=== PATIENT | female | born 1980 | race Caucasian/White ===

== ENCOUNTER 2018-05-12 12:26 | Emergency (ER) | payer OTHER ==
--- NOTE | 2018-05-12 12:41 | UC ---
Respiratory Complaint HPI - HPI Summary HPI Summary: 37 y/o female presents to the urgent care c/o cough and cold symptoms for about a week. she feels it has settled in her chest. she has been afebrile, and has a productive cough with yellow phlem. no shortness of breath. but some pressure when trying to take a deep breath - History of Current Complaint Stated Complaint: COUGH CONGESTION Time Seen by Provider: 05/12/18 12:34 Hx Obtained From: Patient Hx Last Menstrual Period: 07/07/15 - Allergies/Home Medications Allergies/Adverse Reactions: Allergies Allergy/AdvReac Type Severity Reaction Status Date / Time No Known Allergies Allergy Verified 05/12/18 12:53 PMH/Surg Hx/FS Hx/Imm Hx - Surgical History Surgical History: None - Social History Alcohol Use: Occasionally Alcohol Amount: 1-2 DRINKS/MONTH Substance Use Type: None Smoking Status (MU): Never Smoked Tobacco Physical Exam - Summary Physical Exam Summary: Vital Signs Reviewed: Yes General: well developed, well nourished female sitting in the examining table w/ o any apparent distress Eyes: Positive: Conjunctiva Clear - PERRLA, EOMI, fundi grossly normal ENT: Positive: Normal ENT inspection, Hearing grossly normal, Pharynx normal, Nasal congestion - edematous and erythematous nasal mucosa, Nasal drainage - yellowish drainage, TMs normal. Negative: Tonsillar swelling, Tonsillar exudate Neck: Positive: Supple, Nontender, No Lymphadenopathy Respiratory: no orthopnea or dyspnea. Able to speak in full sentences, no retractions or accessory muscle use, no tripod position, stridor, or head bobbing. Positive breath sounds bilaterally. B/l posterior lungs w/ scattered rhonchi RT>LF, no wheezing, no crackles or rales. Cardiovascular: Positive: RRR, No Murmur, Pulses Normal, Brisk Capillary Refill Abdomen Description: Positive: Nontender, No Organomegaly, Soft. Negative: CVA Tenderness (R), CVA Tenderness (L) Bowel Sounds: Positive: Present Musculoskeletal Exam: Normal Musculoskeletal: Positive: Strength Intact, ROM Intact, No Edema Neurological Exam: Normal Psychological Exam: Normal Skin Exam: Normal Triage Information Reviewed: Yes Respiratory Course/Dx - Differential Dx/Diagnosis Differential Diagnosis/HQI/PQRI: Asthma, Bronchitis, Laryngitis, Lower Resp Infection, Sinusitis, Other - pneumonia Provider Diagnoses: 1- Acute bronchitis. 2-Cough Discharge - Sign-Out/Discharge Documenting (check all that apply): Patient Departure - D/c home All imaging exams completed and their final reports reviewed: No Studies - Discharge Plan Condition: Stable Disposition: HOME Prescriptions: Azithromyxin ANAND (NF) [Z-Anand (Zithromax) 250 mg tabs #6] 2 tab PO .TODAY, THEN 1 DAILY #6 tab Benzonatate CAP* [Tessalon 100 MG CAP*] 100 mg PO TID #21 cap Patient Education Materials: Acute Bronchitis (ED) Referrals: Yanique Guo MD [Primary Care Provider] - 3 Days Additional Instructions: 1-Please take full course of antibiotic to avoid resistance. 2-Take Tessalon PO tabs as directed to alleviate cough. Increase fluid intake, rest and eat well. 3- Please F/u with your PCP in 3-4 days if not improvement of symptoms for further management - Billing Disposition and Condition Condition: STABLE Disposition: Home
[2018-05-12 12:53] VITALS: BP 108/69
== END 2018-05-12 13:14 | disposition home or self-care (01) ==
LOC: UCEAST 12:26
DX: J20.9 Acute bronchitis, unspecified (principal)
CPT/HCPCS: 99212; G0463

== ENCOUNTER → 2018-08-11 09:27 | Day surgery (SDC) | payer OTHER ==
[~2018-08-11 09:27] MED LIST: Buffered Lidocaine 0.9% SYRIN* 5 ML/SYR SYRINGE INTRADERM ONE; Bupivacaine 0.5% W/EPI SDV* 30 ML VIAL ONE; Dexamethasone IV* 4 MG/ML 1 ML (4 MG) ONE; Famotidine IV* 10 MG/ML 2 ML (20 mg) IV ONE; Famotidine IV* 10 MG/ML 2 ML (20 mg) ONE; KETAMINE HCL* 50 MG/ML 10 ML VIAL ONE; Ketorolac INJ* 30 MG/ML 1 ML VIAL ONE; Lactated Ringers 1000 ML Bag* 1,000 ML IV SCH; Lidocaine 1% INJ* 10 MG/ML 30 ML SDV ONE; Lidocaine 2% PF * 5 ML VIAL ONE; Midazolam* 1 MG/ML 2 ML VIAL (2 MG) ONE; Midazolam* 1 MG/ML 5 ML VIAL (5 MG) ONE; Naloxone* 0.4 MG/ML 1 ML VIAL IV PRN; Ondansetron INJ* 2 MG/ML VIAL IV PRN; Ondansetron INJ* 2 MG/ML VIAL ONE; Propofol* 10 MG/ML 20 ML BTL ONE; ceFAZolin 2 GM PREMIX in ORs 2 GM/50 ML BAG IVPB ONE; fentaNYL* 50 MCG/ML 2 ML VIAL (100 MCG VIAL) IV PRN; fentaNYL* 50 MCG/ML 2 ML VIAL (100 MCG VIAL) ONE; oxyCODONE/Acetamin 5/325 MG* TAB PO PRN
--- NOTE | 2018-08-11 12:26 | BRIEFOPN ---
Brief Operative Note - Surgery Procedures: Procedures OPERATIVE REPORT PRE-OP: Epigastric Hernia POST-OP: Same PROCEDURE:Open Primary repair of epigastric hernia SURGEON: MD Asmita ANESTHESIA:Local with MAC Dr. Laurent ASST:none IVF:min EBL:min SPECIMEN:none DRAIN: none WOUND CLASS:One COMPLICATIONS: none TO PACU
[2018-08-11 14:31] VITALS: BP 96/59
--- NOTE | 2018-08-12 00:29 | OP ---
DATE OF OPERATION: 08/11/18 - [facility] DATE OF : 84 SURGEON: Richar Tian MD SUPERVISOR CORE DRILLING: None. ANESTHESIOLOGIST: Dr. Laurent. ANESTHESIA: Local with monitored anesthesia care. PRE-OP DIAGNOSIS: Epigastric hernia. POST-OP DIAGNOSIS: Epigastric hernia. OPERATIVE PROCEDURE: Open primary repair with epigastric hernia. WOUND CLASSIFICATION: I. COMPLICATIONS: None. DRAINS: None. SPECIMENS: None. DESCRIPTION OF PROCEDURE: Written informed consent was obtained, the abdomen was marked with indelible ink and preoperative antibiotics were administered. The patient was taken to the operating room, placed in the supine position. Sequential compression devices and warming blanket were applied. The abdomen was prepped and draped in the usual sterile fashion. A time-out verification was completed. A palpable bulge in the midline of the abdomen with several fingerbreadths above the umbilicus and this was infiltrated with 0.25% Marcaine mixed with 1% lidocaine with epinephrine. A vertical incision was made and there was protuberant fat which was identified and carried down to the fascial level. This was reduced into the preperitoneal space and there was a 5- to 6-mm fascial defect at the midline consistent with an epigastric hernia. This was closed with several 0 Vicryl simple sutures placed in a transverse orientation. Hemostasis was assured. The wound was then closed in layers in 3-0 and 4-0 Vicryl suture. Steri-Strips and sterile dressings were applied. The patient tolerated the procedure well, was taken to the recovery room in stable condition. [id number]/CPS #: [id number] MTDD
== END | disposition home or self-care (01) ==
LOC: OR 09:27
PROVIDERS: ATTEND Surgery
DX: K43.9 Ventral hernia without obstruction or gangrene (principal); F41.9 Anxiety disorder, unspecified
CPT/HCPCS: 81025; J0690; J1100; J1885; J2250; J2405; J2704; J3010

== ENCOUNTER 2018-10-16 10:49 | Emergency (ER) | payer OTHER ==
[2018-10-16 10:58] VITALS: BP 98/68
--- NOTE | 2018-10-16 11:45 | UC ---
FLU HPI - HPI Summary HPI Summary: Healthy 38-year-old female with flulike symptoms including body aches, and temperature for the last 36 hours. 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 Vital signs reviewed. Within normal limits. Nurse's note reviewed. - History of Current Complaint Chief Complaint: UCGeneralIllness Stated Complaint: FLU LIKE SYMP Time Seen by Provider: 10/16/18 11:36 Hx Obtained From: Patient Hx Last Menstrual Period: 10/13/18 Pain Intensity: 1 - Allergy/Home Medications Allergies/Adverse Reactions: Allergies Allergy/AdvReac Type Severity Reaction Status Date / Time No Known Allergies Allergy Verified 10/16/18 10:58 PMH/Surg Hx/FS Hx/Imm Hx - Additional Past Medical History Additional PMH: Past medical history: Noncontributory to current complaint. Visit history includes ventral hernia. . Family history: Hypertension. 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 Previously Healthy: Yes - Surgical History Surgical History: Yes Surgery Procedure, Year, and Place: hernia repair - Family History Known Family History: Positive: Cardiac Disease, Hypertension Family History: Dyslipidemia - Social History Alcohol Use: Rare Alcohol Amount: 1-2 DRINKS/MONTH Substance Use Type: None Smoking Status (MU): Never Smoked Tobacco Review of Systems All Other Systems Reviewed And Are Negative: Yes Constitutional: Positive: Fever Skin: Positive: Negative Eyes: Positive: Negative ENT: Positive: Negative Respiratory: Positive: Negative Cardiovascular: Positive: Negative Gastrointestinal: Positive: Negative Genitourinary: Positive: Negative Motor: Positive: Negative Neurovascular: Positive: Negative Musculoskeletal: Positive: Myalgia Neurological: Positive: Negative Is Patient Immunocompromised?: No Physical Exam - Summary Physical Exam Summary: Appearance: The patient is well-appearing, is in no pain or distress, and is well-nourished. Eyes: Conjunctiva are clear. Pupils are equal and reactive to light and accommodation. Extra ocular muscle movement is intact. ENT: The hearing is grossly normal, the pharynx is normal, and the TMs are normal. There is no muffled or hoarse voice. No stridor. Neck: The neck is supple and there is no lymphadenopathy. Respiratory: The chest is nontender to palpation and without crepitus. The lungs are clear, there are normal breath sounds, and there is no respiratory distress. No wheezes, rales or rhonchi. Cardiovascular: Heart sounds reveal a regular rate and rhythm. There are no clicks, rubs or murmurs. There are no carotid bruits or thrills. Circulation is grossly intact. Abdomen: The abdomen is soft and nontender. There is no organomegaly. Bowel sounds are present and within normal limits. No point tenderness at McBurneys point. Musculoskeletal: Strength is intact. The patient moves all extremities. Neurological: The patient is alert. Motor and sensory are examination grossly intact. Speech is normal. Psychological: The patient displays age appropriate behavior Skin: Negative for rashes. Triage Information Reviewed: Yes Vital Signs: Initial Vital Signs Temp 97.7 F 10/16/18 10:56 Pulse 98 10/16/18 10:56 Resp 18 10/16/18 10:56 BP 98/68 10/16/18 10:56 Pulse Ox 98 10/16/18 10:56 Flu Course/Dx - Course Course Of Treatment: Healthy 38-year-old with 2 days of temperature and body aches. Patient tested positive for influenza. She was started on Tamiflu and will not work in the ICU for a total of 7 days from the onset of her illness. The patient's vital signs are stable and she looks well-hydrated. - Differential Dx/Diagnosis Differential Diagnosis/HQI/PQRI: Influenza, Pneumonia Provider Diagnosis: Influenza Discharge - Sign-Out/Discharge Documenting (check all that apply): Patient Departure All imaging exams completed and their final reports reviewed: No Studies - Discharge Plan Condition: Stable Disposition: HOME Prescriptions: Oseltamivir CAP* [Tamiflu CAP*] 75 mg PO BID #10 cap MDD 2 Patient Education Materials: Influenza (DC) Referrals: Yanique Guo MD [Primary Care Provider] - Additional Instructions: WE DISCUSSED: PLEASE SEEK CARE AT THE EMERGENCY DEPARTMENT IF SYMPTOMS WORSEN OR IF NEW SYMPTOMS DEVELOP. FOLLOW UP WITH YOUR PRIMARY CARE PHYSICIAN IF CONDITION CONTINUES BEYOND 3 DAYS WITHOUT IMPROVEMENT. We are open from 7 a.m. to 10 p.m. Call us with any questions or concerns. YOUR DIAGNOSIS IS: influenza YOUR PRESCRIPTION RECOMMENDATION IS: tamiflu, twice a day for 5 days. OTHER INSTRUCTIONS: hot tea and honey; vaporizor; steam; computer engineering technologist shower for heat and moisture. For pain: Ibuprofen (Motrin and other brand names) 400-600mg PLUS acetaminophen (Tylenol and other brand names) 500mg - 1000mg every 8 hours. Maximum is 3 doses a day. If this dosage is required for more than 5 days, you should re-check with your doctor. The combination of these two over-the- counter medications can be more effective than each one taken alone. Please check with the pharmacist if you have questions about your allergies to these medications. - Billing Disposition and Condition Condition: STABLE Disposition: Home
[2018-10-16 12:29] LABS: Influenza A Molecular POSITIVE (Negative)
== END 2018-10-16 13:00 | disposition home or self-care (01) ==
LOC: UCEAST 10:49
DX: J11.1 Influenza due to unidentified influenza virus with other respiratory manifestations (principal)
CPT/HCPCS: 99212; G0463

== ENCOUNTER 2018-11-10 22:21 | Emergency (ER) | payer OTHER ==
[2018-11-10 23:22] LABS: Urine Appearance Cloudy; Urine Bacteria Absent (Absent); Urine Bilirubin Negative (Negative); Urine Blood Negative (Negative); Urine Color Yellow; Urine Glucose Negative (Negative); Urine Ketones Negative (Negative); Urine Nitrite Negative (Negative); Urine Protein 1+(30 mg/dL) (Negative); Urine Red Blood Cell 1+(3-5/hpf) (Absent); Urine Specific Gravity 1.024 (1.010-1.030); Urine Squamous Epithelial Cell Present (Absent); Urine Urobilinogen Negative (Negative); Urine White Blood Cell 3+(>20/hpf) (Absent)
[2018-11-11] MEDS ORDERED: NS 0.9% 1000 ML** 1,000 ML IV ONE (00:43)
[2018-11-11] MEDS ORDERED: Levofloxacin 500 MG IVPREMIX(* 500 MG/100 ML BAG IVPB ONE (00:44)
[2018-11-11] MEDS ORDERED: Ketorolac INJ* 30 MG/ML 1 ML VIAL IV PUSH ONE (00:44)
--- NOTE | 2018-11-11 00:50 | ED ---
Abdominal Pain/Female - HPI Summary HPI Summary: Pt is a 38 y/o F presenting to the ED with a chief complaint of L lower abd/ flank/"kidney" pain onset around 1300. She took some ibuprofen around 1400, but the pain has not gone away. Per triage note, the pt had urinary sx and she suspected a UTI a couple of weeks ago, tried drinking cranberry juice for it, but it did not help. Per triage note, the pt also reported chills and body aches. She denies fever. - History of Current Complaint Chief Complaint: EDFlankPain Stated Complaint: PAIN ON LT SIDE PER PT Hx Obtained From: Patient Hx Last Menstrual Period: 10/13/18 Onset/Duration: Gradual Onset, Lasting Hours, Still Present Timing: Hours Severity Initially: Mild Severity Currently: Mild Pain Intensity: 2 Pain Scale Used: 0-10 Numeric Location: Discrete At: LLQ, Flank Radiates: Yes Radiates to: Back Character: Cramping Aggravating Factor(s): Nothing Alleviating Factor(s): Nothing Associated Signs and Symptoms: Positive: Back Pain, Urinary Symptoms. Negative : Fever Allergies/Adverse Reactions: Allergies Allergy/AdvReac Type Severity Reaction Status Date / Time No Known Allergies Allergy Verified 10/16/18 10:58 Home Medications: Home Medications Escitalopram * [Lexapro 5 mg (NF)] 10 mg PO DAILY 11/11/18 [History Confirmed ] PMH/Surg Hx/FS Hx/Imm Hx Previously Healthy: Yes Cardiovascular History: Denies: Other Cardiovascular Problems/Disorders Respiratory History: Denies: Other Respiratory Problems/Disorders GI History: Reports: Other GI Disorders - Epigastric hernia History: Denies: Other Problems/Disorders Musculoskeletal History: Reports: Other Musculoskeletal History - Epigastric hernia Sensory History: Reports: Hx Contacts or Glasses - GLASSES Denies: Hx Hearing Aid Opthamlomology History: Reports: Hx Contacts or Glasses - GLASSES Neurological History: Denies: Other Neuro Impairments/Disorders Psychiatric History: Reports: Hx Anxiety - Hx OF, STILL GETS A LITTLE ANXIOUS AT TIMES - Surgical History Surgery Procedure, Year, and Place: hernia repair Hx Anesthesia Reactions: - never had anesthesia Infectious Disease History: No Infectious Disease History: Denies: History Other Infectious Disease, Traveled Outside the [place] in Last 30 Days - Family History Known Family History: Positive: Cardiac Disease, Hypertension Family History: Dyslipidemia - Social History Alcohol Use: Rare Alcohol Amount: 1-2 DRINKS/MONTH Hx Substance Use: No Substance Use Type: Reports: None Hx Tobacco Use: No Smoking Status (MU): Never Smoked Tobacco Review of Systems Positive: Chills. Negative: Fever Positive: Abdominal Pain Positive: see HPI Positive: Myalgia All Other Systems Reviewed And Are Negative: Yes Physical Exam - Summary Physical Exam Summary: VITAL SIGNS: Reviewed. GENERAL: Patient is a well-developed and nourished female who is lying comfortable in the stretcher. Patient is not in any acute respiratory distress. HEAD AND FACE: No signs of trauma. No ecchymosis, hematomas or skull depressions. No sinus tenderness. EYES: PERRLA, EOMI x 2, No injected conjunctiva, no nystagmus. EARS: Hearing grossly intact. Ear canals and tympanic membranes are within normal limits. MOUTH: Oropharynx within normal limits. NECK: Supple, trachea is midline, no adenopathy, no JVD, no carotid bruit, no c- spine tenderness, neck with full ROM. CHEST: Symmetric, no tenderness at palpation LUNGS: Clear to auscultation bilaterally. No wheezing or crackles. CVS: Regular rate and rhythm, S1 and S2 present, no murmurs or gallops appreciated. ABDOMEN: LLQ tenderness. No signs of distention. No rebound no guarding, and no masses palpated. Bowel sounds are normal. BACK: No CVA tenderness bilaterally. EXTREMITIES: FROM in all major joints, no edema, no cyanosis or clubbing. NEURO: Alert and oriented x 3. No acute neurological deficits. Speech is normal and follows commands. SKIN: Dry and warm Triage Information Reviewed: Yes Vital Signs On Initial Exam: Initial Vitals Temp Pulse Resp BP Pulse Ox 99.1 F 112 16 113/78 97 11/10/18 22:29 11/10/18 22:29 11/10/18 22:29 11/10/18 22:29 11/10/18 22:29 Vital Signs Reviewed: Yes Diagnostics - Vital Signs Vital Signs Temp Pulse Resp BP Pulse Ox 11/10/18 22:29 99.1 F 112 16 113/78 97 - Laboratory Lab Results: Lab Results 11/10/18 Range/Units 23:07 Urine Color Yellow Urine Appearance Cloudy Urine pH 6.0 (5-9) Ur Specific [place] 1.024 (1.010-1.030) Urine Protein 1+(30 mg/dl) A (Negative) Urine Ketones Negative (Negative) Urine Blood Negative (Negative) Urine Nitrate Negative (Negative) Urine Bilirubin Negative (Negative) Urine Urobilinogen Negative (Negative) Ur Leukocyte Esterase 2+ A (Negative) Urine WBC (Auto) 3+(>20/hpf) A (Absent) Urine RBC (Auto) 1+(3-5/hpf) A (Absent) Ur Squamous Epith Cells Present A (Absent) Urine Bacteria Absent (Absent) Urine Glucose Negative (Negative) Result Diagrams: 11/11/18 00:55 11/11/18 00:55 Lab Statement: Any lab studies that have been ordered have been reviewed, and results considered in the medical decision making process. - CT Abd/pelv CT CT Interpretation Completed By: Radiologist Summary of CT Findings: 1. Punctate nonobstructing renal stones in upper pole of the bilateral kidneys. No hydronephrosis. 2. A small hiatal hernia. 3. Large fecal load. ED physician has reviewed this report. Abdominal Pain Fem Course/Dx - Course Course Of Treatment: Pt is a 38 y/o F presenting to the ED with a chief complaint of L lower abd/flank/"kidney" pain onset around 1300. Per triage note , the pt had urinary sx and she suspected a UTI a couple of weeks ago, tried drinking cranberry juice for it, but it did not help. Per triage note, the pt also reported chills and body aches. She denies fever. CT abd/pelv shows: 1. Punctate nonobstructing renal stones in upper pole of the bilateral kidneys. No hydronephrosis. 2. A small hiatal hernia. 3. Large fecal load. The pt will be d/c'ed home with a dx of UTI and constipation. I discussed the results with the pt who is agreeable with this plan. - Diagnoses Provider Diagnoses: UTI (urinary tract infection), Constipation Discharge - Sign-Out/Discharge Documenting (check all that apply): Patient Departure Patient Received Moderate/Deep Sedation with Procedure: No - Discharge Plan Condition: Stable Disposition: HOME Referrals: Yanique Guo MD [Primary Care Provider] - Additional Instructions: Please follow up with your primary care provider within the next 2-3 days. Return to the ED with any new or worsening symptoms. - Attestation Statements Document Initiated by Scribe: Yes Documenting Scribe: Matilde Jimenez Provider For Whom Scribe is Documenting (Include Credential): Rey Leonard MD. Scribe Attestation: Matilde Deleon, scribed for Rey Leonard MD. on 11/11/18 at 0322. Status of Scribe Document: Ready
[2018-11-11 01:03] LABS: ABS Basophils 0 10^3/ul (0-0.2); ABS Eosinophils 0 10^3/ul (0-0.6); ABS Lymphocytes 0.4 10^3/ul (1.0-4.8); ABS Monocytes 0.4 10^3/ul (0-0.8); ABS Neutrophils 7.3 10^3/ul (1.5-7.7); ABS Nucleated RBC 0 10^3/ul; Eosinophil % 0.4 %; Hematocrit 41 % (33-41); Hemoglobin 13.8 g/dL (12.0-16.0); Lymphocyte % 5.3 %; Mean Corpuscular HGB Conc 34 g/dL (31-36); Mean Corpuscular Hemoglobin 30 pg (27-31); Mean Corpuscular Volume 87 fL (80-97); Mean Platelet Volume 8.3 fL (7.4-10.4); Nucleated Red Blood Cells % 0; Platelet Count 209 10^3/uL (150-450); Red Blood Count 4.64 10^6 /uL (3.70-4.87); Red Cell Distribution Width 14 % (10.5-15); White Blood Count 8.2 10^3/uL (3.5-10.8)
[2018-11-11 01:20] LABS: ALT 23 U/L (7-52); AST 25 U/L (13-39); Albumin 4.2 g/dL (3.2-5.2); Albumin/Globulin Ratio 1.5 (1-3); Alkaline Phosphatase 48 U/L (34-104); Anion Gap 8 mmol/L (2-11); BUN/Creatinine Ratio 18.2 (8-20); Blood Urea Nitrogen 12 mg/dL (6-24); C Reactive Protein 5.54 mg/L (<8.01); CO2 Carbon Dioxide 24 mmol/L (22-32); Calcium 8.8 mg/dL (8.6-10.3); Chloride 104 mmol/L (101-111); EGFR African American 122.6 (>60); EGFR Non-African American 101.3 (>60); Globulin 2.8 g/dL (2-4); Glucose 99 mg/dL (70-100); Potassium 3.8 mmol/L (3.5-5.0); Sodium 136 mmol/L (135-145)
[2018-11-11 01:27] LABS: HCG Pregnancy < 0.60 mIU/mL
[2018-11-11] MEDS ORDERED: Metoclopramide IV* 5 MG/ML 2 ML VIAL IV SLOW PU ONE (01:41)
[2018-11-11 03:21] VITALS: BP 92/49
[2018-11-11] MEDS ORDERED: Bisacodyl SUPP* 10 MG SUPP PR ONE (03:22)
[2018-11-11] MEDS ORDERED: Magnesium CITRATE* 300 ML BTL PO ONE (03:22)
[2018-11-11] MEDS ORDERED: Bisacodyl SUPP* 10 MG SUPP ONE (03:41)
== END 2018-11-11 03:45 | disposition home or self-care (01) ==
LOC: ED 22:21
DX: R10.9 Unspecified abdominal pain (principal); N39.0 Urinary tract infection, site not specified; K59.00 Constipation, unspecified
CPT/HCPCS: 36415; 74176; 80053; 81003; 81015; 83605; 84702; 85025; 86140; 87040; 87086; 96360; 96361; 96374; 96375; 99283; A9270-GY; J1885; J1956; J2765

== ENCOUNTER 2019-06-12 08:15 | Emergency (ER) | payer OTHER ==
[2019-06-12 08:22] VITALS: BP 130/76
--- NOTE | 2019-06-12 08:49 | UC ---
Respiratory Complaint HPI - HPI Summary HPI Summary: PATIENT HAS HAD OVERALL MALAISE, FATIGUE AND ACHINESS FOR SEVERAL DAYS. YESTERDAY DEVELOPED FEVER TMAX 102.4, SORE THROAT AND SINUS PRESSURE. NO RASH. UP-TO-DATE FLU SHOT. LAST DOSE TYLENOL 2-3 HOURS AGO. - History of Current Complaint Chief Complaint: UCRespiratory Stated Complaint: SORE THROAT AND FEVER Time Seen by Provider: 06/12/19 08:19 Hx Obtained From: Patient Hx Last Menstrual Period: 10/13/18 Onset/Duration: Gradual Onset, Lasting Days, Still Present Timing: Constant Severity Initially: Moderate Severity Currently: Moderate Pain Intensity: 4 Pain Scale Used: 0-10 Numeric Character: Cough: Nonproductive Aggravating Factors: Nothing Alleviating Factors: Nothing Associated Signs And Symptoms: Positive: Fever, Chills, URI, Nasal Congestion. Negative: Dyspnea - Allergies/Home Medications Allergies/Adverse Reactions: Allergies Allergy/AdvReac Type Severity Reaction Status Date / Time No Known Allergies Allergy Verified 06/12/19 08:23 Home Medications: Home Medications Ibuprofen 600 mg PO Q6HR 06/12/19 [History Confirmed 06/12/19] PMH/Surg Hx/FS Hx/Imm Hx Previously Healthy: Yes - Surgical History Surgical History: Yes Surgery Procedure, Year, and Place: hernia repair - Family History Known Family History: Positive: Cardiac Disease, Hypertension Family History: Dyslipidemia - Social History Alcohol Use: Occasionally Alcohol Amount: 1-2 DRINKS/MONTH Substance Use Type: None Smoking Status (MU): Never Smoked Tobacco Review of Systems All Other Systems Reviewed And Are Negative: Yes Constitutional: Positive: Fever, Chills, Fatigue ENT: Positive: Sore Throat, Ear Ache, Nasal Discharge Respiratory: Positive: Cough Cardiovascular: Positive: Negative Gastrointestinal: Positive: Negative Neurological: Positive: Headache Physical Exam Triage Information Reviewed: Yes Appearance: Well-Appearing, No Pain Distress, Well-Nourished Vital Signs: Initial Vital Signs Temp 100.2 F 06/12/19 08:19 Pulse 92 06/12/19 08:19 Resp 18 06/12/19 08:19 BP 130/76 06/12/19 08:19 Pulse Ox 100 06/12/19 08:19 Laboratory Tests 06/12/19 06/12/19 08:27 08:47 Influenza A (Rapid) Negative Influenza B (Rapid) Negative Group A Strep Rapid Negative Vital Signs Reviewed: Yes Eyes: Positive: Conjunctiva Clear ENT: Positive: Hearing grossly normal, Pharynx normal, TMs normal Neck: Positive: Supple, Nontender, No Lymphadenopathy Respiratory Exam: Normal Cardiovascular Exam: Normal Abdomen Description: Positive: Soft Musculoskeletal: Positive: No Edema Neurological: Positive: Alert Psychological: Positive: Age Appropriate Behavior Skin: Negative: Rashes Respiratory Course/Dx - Course Course Of Treatment: STREP NEGATIVE. FLU SWAB NEGATIVE. PATIENT SYMPTOMS ARE LIKELY VIRALLY MEDIATED AND SHOULD RESOLVE ON THEIR OWN WITH TIME. DISCUSSED THE POSSIBILITY OF LYME DISEASE GIVEN THAT SHE HAS HAD SEVERAL TICK BITES OVER THE SUMMER. 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 ADVISED TO FOLLOW-UP IF HER FEVER IS PERSISTENT/NOT IMPROVING OVER THE NEXT FEW DAYS. - Differential Dx/Diagnosis Provider Diagnosis: Acute viral syndrome Discharge ED - Sign-Out/Discharge Documenting (check all that apply): Patient Departure All imaging exams completed and their final reports reviewed: No Studies - Discharge Plan Condition: Stable Disposition: HOME Patient Education Materials: Viral Syndrome (ED) Referrals: Yanique Guo MD [Primary Care Provider] - 1 Week Additional Instructions: STREP NEGATIVE. FLU NEGATIVE. YOUR SYMPTOMS ARE LIKELY VIRALLY MEDIATED AND SHOULD RESOLVE ON THEIR OWN WITH TIME. NO INDICATION FOR ANTIBIOTICS AT PRESENT. REST, HYDRATE, OTC MEDS NEEDED. SEEK FOLLOW-UP IF YOU ARE NOT IMPROVING OVER THE NEXT FEW DAYS. - Billing Disposition and Condition Condition: STABLE Disposition: Home
[2019-06-12 08:59] LABS: Influenza A Molecular NEGATIVE (Negative); Influenza B Molecular NEGATIVE (Negative)
== END 2019-06-12 09:12 | disposition home or self-care (01) ==
LOC: UCEAST 08:15
DX: B34.9 Viral infection, unspecified (principal)
CPT/HCPCS: 87651; 99211; G0463

== ENCOUNTER 2019-09-24 12:12 | Emergency (ER) | payer OTHER | END 2019-09-24 12:53 | disposition left against medical advice (07) | LOC: UCEAST 12:12 | DX: Z53.21 Procedure and treatment not carried out due to patient leaving prior to being seen by health care provider (principal) ==

== ENCOUNTER 2019-10-12 10:14 | Emergency (ER) | payer OTHER ==
[2019-10-12 12:33] VITALS: BP 111/80
[2019-10-12 12:57] LABS: Influenza B Molecular POSITIVE (Negative)
--- NOTE | 2019-10-12 14:38 | UC ---
Respiratory Complaint HPI - HPI Summary HPI Summary: 39 year old female with no PMH, - History of Current Complaint Chief Complaint: UCGeneralIllness Stated Complaint: CHEST CONGESTION Time Seen by Provider: 10/12/19 12:36 Hx Obtained From: Patient Hx Last Menstrual Period: 10/05/19 ?: No Pain Intensity: 3 Pain Scale Used: 0-10 Numeric Character: Cough: Nonproductive Associated Signs And Symptoms: Positive: Fever, Chills, URI, Nasal Congestion, Hoarseness. Negative: Hemoptysis, Dizziness, Calf Pain, Calf Swelling, Sinus Discomfort - Allergies/Home Medications Allergies/Adverse Reactions: Allergies Allergy/AdvReac Type Severity Reaction Status Date / Time No Known Allergies Allergy Verified 10/12/19 12:33 Home Medications: Home Medications Albuterol HFA INHALER* [Ventolin HFA Inhaler*] 1 - 2 puff INH Q4H PRN #1 mdi 04/24 [Rx] Oseltamivir CAP* [Tamiflu CAP*] 75 mg PO BID #10 cap 10/12/19 [Rx] PMH/Surg Hx/FS Hx/Imm Hx Previously Healthy: Yes - Surgical History Surgical History: Yes Surgery Procedure, Year, and Place: hernia repair - Family History Known Family History: Positive: Cardiac Disease, Hypertension Family History: Dyslipidemia - Social History 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 Negative: Shortness Of Breath Cardiovascular: Positive: Other - chest tightness with deep breathing Gastrointestinal: Positive: Nausea Musculoskeletal: Positive: Myalgia Neurological/Mental Status: Positive: Negative Psychological: Positive: Negative Is Patient Immunocompromised?: No Physical Exam Triage Information Reviewed: Yes Appearance: No Pain Distress, Well-Nourished, Ill-Appearing - mild Vital Signs: Initial Vital Signs Temp 97.5 F 10/12/19 12:30 Pulse 90 10/12/19 12:30 Resp 16 10/12/19 12:30 BP 111/80 10/12/19 12:30 Pulse Ox 100 10/12/19 12:30 Vital Signs Reviewed: Yes Eyes: Positive: Conjunctiva Clear ENT: Positive: Pharyngeal erythema - minimal, TMs normal, Sinus tenderness - frontal. Negative: Tonsillar swelling, Tonsillar exudate, Uvula midline Neck: Positive: Supple, Nontender, No Lymphadenopathy. Negative: Nuchal Rigidity, Enlarged Nodes @ Respiratory: Positive: Chest non-tender, Lungs clear, Normal breath sounds, No respiratory distress, No accessory muscle use. Negative: Respiratory distress, Decreased breath sounds, Crackles, Rhonchi, Stridor, Wheezing Cardiovascular: Positive: RRR, No Murmur. Negative: Pulses Normal, Brisk Capillary Refill Neurological: Positive: Alert Psychological Exam: Normal Skin Exam: Normal Skin: Negative: Rashes Respiratory Course/Dx - Course Course Of Treatment: - Increase fluid intake - Humidifier at night to help with coughing - Good Hygiene, hand washing to prevent spread - Over the counter medications for symptoms - Motrin/ Tylenol as needed for pain, fever - Tamiflu as directed - Albuterol inhaler as needed for cough, shortness of breath - Work/School note given - Differential Dx/Diagnosis Differential Diagnosis/HQI/PQRI: Influenza, Sinusitis Provider Diagnosis: Influenza Discharge ED - Sign-Out/Discharge Documenting (check all that apply): Patient Departure All imaging exams completed and their final reports reviewed: No Studies - Discharge Plan Condition: Fair Disposition: HOME Prescriptions: Albuterol HFA INHALER* [Ventolin HFA Inhaler*] 1 - 2 puff INH Q4H PRN #1 mdi PRN Reason: shortness of breath, cough Oseltamivir CAP* [Tamiflu CAP*] 75 mg PO BID #10 cap Patient Education Materials: Influenza (ED) Forms: *School Release, *Work Release Referrals: Yanique Guo MD [Primary Care Provider] - Additional Instructions: - Increase fluid intake - Humidifier at night to help with coughing - Good Hygiene, hand washing to prevent spread - Over the counter medications for symptoms - Motrin/ Tylenol as needed for pain, fever - Tamiflu as directed - Albuterol inhaler as needed for cough, shortness of breath - Work/School note given - Billing Disposition and Condition Condition: FAIR Disposition: Home
== END 2019-10-12 13:26 | disposition home or self-care (01) ==
LOC: UCEAST 10:14
DX: J11.1 Influenza due to unidentified influenza virus with other respiratory manifestations (principal)
CPT/HCPCS: 99212; G0463